=== PATIENT | female | born 1995 | race African-American/Black ===

== ENCOUNTER 2024-11-17 07:30 | Inpatient (IN) ==
[2024-11-17] MEDS: PITOCIN IVP ONE (08:13)
[2024-11-17] MEDS ORDERED: NUBAIN INJ 20 MG AMP IVP PRN (08:13)
[2024-11-17] MEDS ORDERED: REGLAN INJ 10 MG VIAL IVP PRN ×2 (08:13→09:52)
[2024-11-17] MEDS ORDERED: ZOFRAN INJ 4 MG VIAL IVP PRN ×3 (08:13→10:39)
[2024-11-17] MEDS: VERSED ONE (08:37)
[2024-11-17] MEDS: XYLOCAINE 2 % (PLAIN) ONE (08:37)
[2024-11-17] MEDS: MARCAINE SPINAL ONE (08:37)
[2024-11-17] MEDS: PITOCIN ONE (08:37)
[2024-11-17] MEDS: PRECEDEX INJ VIAL ONE (08:39)
[2024-11-17 08:46] LABS: COR CA(FOR HYPOALB) 9.7 mg/dL (8.5-10.1); CREATININE 0.53 mg/dL (0.55-1.02); eGFR NON BLACK RACES > 60 (>60)
[2024-11-17] MEDS: BICITRA 30 ML PO ONE (08:47)
[2024-11-17] MEDS: LR 1,000 ML IV 1,000 ML IV ONE (08:48)
[2024-11-17] MEDS: NS 100 ML IV 100 ML ONE (08:54)
[2024-11-17] MEDS: ANCEF VIAL 1 GRAM IVP ONE (08:54)
[2024-11-17] MEDS: D5 1/2 NS 1,000 ML 1,000 ML IV SCH (09:00)
[2024-11-17] MEDS: LR 1,000 ML IV 1,000 ML IV PRN (09:01)
[2024-11-17] MEDS ORDERED: PRECEDEX INJ VIAL PRN (09:10)
[2024-11-17] MEDS: EPHEDRINE SULFATE INJ ONE (09:15)
[2024-11-17] MEDS: NEO-SYNEPHRINE INJ ONE (09:19)
[2024-11-17] MEDS: EPHEDRINE SULFATE INJ IVP PRN (09:20)
[2024-11-17] MEDS: ZOFRAN INJ 4 MG VIAL IVP PRN (09:27)
[2024-11-17] MEDS: ZOFRAN INJ 4 MG VIAL ONE (09:27)
[2024-11-17] MEDS ORDERED: PITOCIN IVP PRN (09:39)
[2024-11-17] MEDS: VERSED IVP PRN (09:48)
[2024-11-17] MEDS ORDERED: DILAUDID INJ IVP PRN (09:52)
[2024-11-17] MEDS ORDERED: BENADRYL INJ 50 MG VIAL IVP PRN ×2 (09:52→10:39)
[2024-11-17] MEDS: NS 1,000 ML IV 200 ML IV PRN (09:54)
[2024-11-17] MEDS: OFIRMEV IV 1000 MG VIAL 1,000 MG/100 ML VIAL IV ONE (10:31)
[2024-11-17] MEDS: OFIRMEV IV 1000 MG VIAL 1,000 MG/100 ML VIAL IV PRN (10:32)
[2024-11-17] MEDS ORDERED: ADACEL or BOOSTRIX TDaP VACCINE IM ONE (10:39)
[2024-11-17] MEDS ORDERED: NARCAN INJ IVP PRN (10:39)
[2024-11-17] MEDS ORDERED: OFIRMEV IV 1000 MG VIAL 1,000 MG/100 ML VIAL IV PRN (10:39)
--- NOTE | 2024-11-17 10:49 | OR.IMMED ---
IMMEDIATE POST-OP NOTE Immediate Post-Op Note Pre-Op Diagnosis: 39 weeks, previous section, desires sterilization Post-Op Diagnosis: same Procedure: Elective repeat low transverse section with bilateral Terrell tubal ligation Description of Procedure: Live female infant with reassuring apgars Surgeon/Science And Operations Officer: Angelita Mckinnon MD Specimens Removed: Placenta, and portion of left and right fallopian tubes Drains: NONE Complications: None Progress Notes: Patient was transferred to PACU in stable condition Discharge Progress Notes: Mother and stable. Infant to term nursery.
[2024-11-17] MEDS ORDERED: D5 1/2 NS 1,000 ML 1,000 ML with PITOCIN 20 UNITS IV SCH (11:00)
[2024-11-17] MEDS: TORADOL 30 MG VIAL IVP PRN (14:21)
[2024-11-17] MEDS: MOTRIN TAB 800 MG PO PRN (17:01)
[2024-11-18] MEDS: ROXICODONE TAB 5 MG PO PRN (01:04)
[2024-11-18] MEDS: OXYTOCIN 20 UNIT/1,000 ML-NS 20 UNIT/1,000 ML PLAST..BAG IV SCH (02:05)
[2024-11-18] MEDS: MYLICON TAB 80 MG CHEW PO PRN (04:45)
[2024-11-18] MEDS: PERCOCET TAB 5/325 MG PO PRN (07:33)
[2024-11-18] MEDS: PRENATAL PLUS PO SCH (08:15)
--- NOTE | 2024-11-18 08:56 | NOTE.PROBC ---
Progress Note OB-C/S Date Date of Exam: 11/18/24 Subjective Data Subjective: Postoperative day #1 status post elective repeat section with bilateral tubal ligation. Patient states pain is controlled with IV Tylenol, IV Toradol, and ibuprofen. Coto is still in place. Tolerated a regular breakfast. Reports no flatus. Bleeding seems about normal. No shortness of breath or chest pain. Patient notices that her pain with the tubal ligation seems greater than her C- sections without a tubal ligation. Objective Data 11/18/24 05:08 11/17/24 08:23 Objective Data: Obese -Wallisian female in no apparent distress. Lungs clear to auscultation bilaterally. Heart regular rate and rhythm. Abdomen soft, nondistended. Dressing in place. Coto in place. Extremities, trace of edema. Assessment Assessment: Postoperative day #1 status post elective repeat section with bilateral tubal ligation, doing well. Plan (1) delivery delivered: Plan: Ambulate. Advance medicines to p.o. meds for pain. Coto is to be removed. Monitor for signs of returning bowel function.
[2024-11-18] MEDS ORDERED: ADACEL or BOOSTRIX TDaP VACCINE IM ONE (09:06)
[2024-11-18] MEDS: ADACEL or BOOSTRIX TDaP VACCINE IM ONE (09:12)
[2024-11-18] MEDS ORDERED: BETADINE SOLN ONE (14:49)
[2024-11-19 07:41] VITALS: BP 105/55; PULSE 89; RESP 20; TEMP 98.4; O2SAT 98
--- NOTE | 2024-11-19 09:23 | NOTE.PROBC ---
Progress Note OB-C/S Date Date of Exam: 11/19/24 Subjective Data Subjective: Patient states that she feels much better and is passing flatus. Pain is controlled with ibuprofen and Percocet. Bleeding seems about normal. No new complaints. Patient states that if possible she would like to go home. Objective Data 11/19/24 04:03 11/17/24 08:23 Objective Data: Obese -[place] female in no apparent distress. Clear to auscultation bilaterally. Regular rate and rhythm. Abdomen soft nontender. Fundus below umbilicus. Dressing intact. Extremities no edema. Assessment Assessment: Postoperative day #2 status post elective repeat section with bilateral tubal ligation. Postoperative anemia. Plan (1) delivery delivered: Plan: Patient states that she is passing flatus and therefore she can go home to follow-up in the office in 1 week for an incision check. She can be discharged with her dressing in place. Patient was asked to call the pharmacy to verify that her medicines were ready to picker operator and they had been received by the pharmacy. Discharge instructions and precaution per nursing staff.
--- NOTE | 2024-11-19 09:25 | W.DIS.FURT ---
Summary of Discharge Discharge Summary of Date Date of Exam: 11/19/24 Admission Date Date of Admission: 11/17/24 Admission Diagnosis Hospital Course: Patient is a 29-year-old 5 para 5 who was admitted on Saturday for elective repeat section with bilateral tubal ligation for sterilization. Patient has progressed well on the floor postoperatively. She is showing good signs of returning bowel function and is passing flatus. She was discharged to home in self-care with 1 week follow-up for incision check and a prescription for analgesics was sent to her pharmacy at [facility] in [place]. Patient was instructed to call the pharmacy to make sure that they have received the medicine. Vital Signs: Vital Signs (72 hours) 11/17/24 08:13 11/17/24 08:15 11/17/24 08:18 Temperature 98.4 F Pulse Rate 92 H 84 84 Pulse Rate [Left Brachial] Respiratory Rate 18 Blood Pressure 121/66 Blood Pressure [Left Arm] O2 Sat by Pulse Oximetry 98 97 98 Oxygen Delivery Method Room Air 11/17/24 08:23 11/17/24 08:28 11/17/24 08:30 Temperature Pulse Rate 77 84 80 Pulse Rate [Left Brachial] Respiratory Rate Blood Pressure 121/66 Blood Pressure [Left Arm] O2 Sat by Pulse Oximetry 99 98 94 L Oxygen Delivery Method 11/17/24 09:54 11/17/24 10:41 11/17/24 10:46 Temperature 97.0 F L Pulse Rate 77 76 Pulse Rate [Left Brachial] Respiratory Rate 16 16 Blood Pressure 128/68 120/66 Blood Pressure [Left Arm] O2 Sat by Pulse Oximetry 94 L 92 L Oxygen Delivery Method Room Air Room Air Room Air 11/17/24 10:51 11/17/24 10:56 11/17/24 11:01 Temperature Pulse Rate 76 75 76 Pulse Rate [Left Brachial] Respiratory Rate 16 16 16 Blood Pressure 122/63 122/69 122/69 Blood Pressure [Left Arm] O2 Sat by Pulse Oximetry 93 L 95 95 Oxygen Delivery Method Room Air Room Air Room Air 11/17/24 11:06 11/17/24 11:11 11/17/24 11:30 Temperature Pulse Rate 71 72 Pulse Rate [Left Brachial] Respiratory Rate 14 14 Blood Pressure 118/70 121/89 Blood Pressure [Left Arm] O2 Sat by Pulse Oximetry 95 95 Oxygen Delivery Method Room Air Room Air Room Air 11/17/24 11:30 11/17/24 11:30 11/17/24 11:45 Temperature 97.5 F L 97.5 F L 97.4 F L Pulse Rate 72 69 Pulse Rate [Left Brachial] 72 Respiratory Rate 21 21 21 Blood Pressure 112/52 109/54 Blood Pressure [Left Arm] 112/52 O2 Sat by Pulse Oximetry 93 L Oxygen Delivery Method Room Air 11/17/24 12:00 11/17/24 12:15 11/17/24 12:30 Temperature 97.4 F L 97.4 F L 97.4 F L Pulse Rate 85 75 71 Pulse Rate [Left Brachial] Respiratory Rate 21 21 21 Blood Pressure 112/73 124/64 117/59 Blood Pressure [Left Arm] O2 Sat by Pulse Oximetry Oxygen Delivery Method 11/17/24 13:30 11/17/24 14:21 11/17/24 14:30 Temperature 97.4 F L 97.2 F L Pulse Rate 74 73 Pulse Rate [Left Brachial] Respiratory Rate 21 16 24 Blood Pressure 107/56 112/58 Blood Pressure [Left Arm] O2 Sat by Pulse Oximetry Oxygen Delivery Method 11/17/24 15:30 11/17/24 16:30 11/17/24 16:30 Temperature 97.4 F L 98.0 F 98.0 F Pulse Rate 77 70 Pulse Rate [Left Brachial] 70 Respiratory Rate 20 20 20 Blood Pressure 112/61 117/59 Blood Pressure [Left Arm] 117/59 O2 Sat by Pulse Oximetry 99 Oxygen Delivery Method Room Air 11/17/24 17:01 11/17/24 18:01 11/17/24 19:00 Temperature Pulse Rate Pulse Rate [Left Brachial] Respiratory Rate 18 22 Blood Pressure Blood Pressure [Left Arm] O2 Sat by Pulse Oximetry Oxygen Delivery Method Room Air 11/17/24 19:56 11/17/24 20:00 11/17/24 20:26 Temperature 98.5 F Pulse Rate Pulse Rate [Left Brachial] 73 Respiratory Rate 20 18 18 Blood Pressure Blood Pressure [Left Arm] 129/78 O2 Sat by Pulse Oximetry 98 Oxygen Delivery Method Room Air 11/18/24 00:00 11/18/24 01:04 11/18/24 02:04 Temperature 98.7 F Pulse Rate Pulse Rate [Left Brachial] 86 Respiratory Rate 18 20 17 Blood Pressure Blood Pressure [Left Arm] 117/55 O2 Sat by Pulse Oximetry 98 Oxygen Delivery Method Room Air 11/18/24 04:00 11/18/24 04:40 11/18/24 05:10 Temperature 98.7 F Pulse Rate Pulse Rate [Left Brachial] 79 Respiratory Rate 18 19 18 Blood Pressure Blood Pressure [Left Arm] 140/82 O2 Sat by Pulse Oximetry 98 Oxygen Delivery Method Room Air 11/18/24 07:00 11/18/24 07:33 11/18/24 08:00 Temperature 98.2 F Pulse Rate Pulse Rate [Left Brachial] 91 H Respiratory Rate 20 18 Blood Pressure Blood Pressure [Left Arm] 114/58 O2 Sat by Pulse Oximetry 98 Oxygen Delivery Method Room Air Room Air 11/18/24 08:33 11/18/24 11:31 11/18/24 12:00 Temperature 98.4 F Pulse Rate Pulse Rate [Left Brachial] 94 H Respiratory Rate 20 20 18 Blood Pressure Blood Pressure [Left Arm] 121/63 O2 Sat by Pulse Oximetry 99 Oxygen Delivery Method Room Air 11/18/24 12:31 11/18/24 15:02 11/18/24 16:00 Temperature 97.3 F L Pulse Rate Pulse Rate [Left Brachial] 82 Respiratory Rate 20 20 18 Blood Pressure Blood Pressure [Left Arm] 117/70 O2 Sat by Pulse Oximetry 98 Oxygen Delivery Method Room Air 11/18/24 16:02 11/18/24 19:00 11/18/24 20:00 Temperature 97.9 F Pulse Rate Pulse Rate [Left Brachial] 89 Respiratory Rate 20 18 Blood Pressure Blood Pressure [Left Arm] 117/70 O2 Sat by Pulse Oximetry 98 Oxygen Delivery Method Room Air Room Air 11/18/24 20:00 11/18/24 20:08 11/18/24 21:08 Temperature 97.9 F Pulse Rate Pulse Rate [Left Brachial] 89 Respiratory Rate 18 20 20 Blood Pressure Blood Pressure [Left Arm] 117/70 O2 Sat by Pulse Oximetry 98 Oxygen Delivery Method Room Air 11/19/24 00:00 11/19/24 00:10 11/19/24 01:10 Temperature 98.4 F Pulse Rate Pulse Rate [Left Brachial] 82 Respiratory Rate 17 20 18 Blood Pressure Blood Pressure [Left Arm] 118/70 O2 Sat by Pulse Oximetry 98 Oxygen Delivery Method Room Air 11/19/24 04:00 11/19/24 07:00 11/19/24 07:40 Temperature 97.9 F 98.4 F Pulse Rate Pulse Rate [Left Brachial] 75 89 Respiratory Rate 16 20 Blood Pressure Blood Pressure [Left Arm] 127/71 105/55 O2 Sat by Pulse Oximetry 99 98 Oxygen Delivery Method Room Air Room Air Room Air 11/19/24 07:49 Temperature Pulse Rate Pulse Rate [Left Brachial] Respiratory Rate 20 Blood Pressure Blood Pressure [Left Arm] O2 Sat by Pulse Oximetry Oxygen Delivery Method Labs: Laboratory Last Values Hgb 9.5 g/dL (12.0-16.0) L 11/19/24 04:03 Hct 28.2 % (36.0-47.0) L 11/19/24 04:03 Sodium 136 mmol/L (136-145) 11/17/24 08:23 Corrected Sodium TNP 11/17/24 08:23 Potassium 3.8 mmol/L (3.5-5.1) 11/17/24 08:23 Chloride 104 mmol/L (98-107) 11/17/24 08:23 Carbon Dioxide 26.2 mmol/L (21-32) 11/17/24 08:23 BUN 4 mg/dL (7-18) L 11/17/24 08:23 Creatinine 0.53 mg/dL (0.55-1.02) L 11/17/24 08:23 Est GFR (MDRD) Af Amer > 60 (>60) 11/17/24 08:23 Est GFR (MDRD) Non-Af > 60 (>60) 11/17/24 08:23 Glucose 84 mg/dL (65-99) 11/17/24 08:23 Calcium 8.7 mg/dL (8.5-10.1) 11/17/24 08:23 Corrected Calcium 9.7 mg/dL (8.5-10.1) 11/17/24 08:23 Total Bilirubin 0.40 mg/dL (0.2-1.0) 11/17/24 08:23 AST 18 Units/L (15-37) 11/17/24 08:23 ALT 18 Units/L (12-78) 11/17/24 08:23 Alkaline Phosphatase 192 Units/L (46-116) H 11/17/24 08:23 Total Protein 7.6 g/dL (6.4-8.2) 11/17/24 08:23 Albumin 2.7 g/dL (3.4-5.0) L 11/17/24 08:23 Globulin 4.9 g/dL (2.5-4.5) H 11/17/24 08:23 Albumin/Globulin Ratio 0.6 Ratio (1.1-2.1) L 11/17/24 08:23 RPR Nonreactive (NONREACTIVE) 11/17/24 08:23 HIV 1&2 Antibody Non reactive (NONREACTIVE) 11/17/24 08:23 HIV P24 Antigen Non reactive (NONREACTIVE) 11/17/24 08:23 Reason For Visit: SECTION Discharge Date Discharge Date: 11/19/24 Discharge Diagnosis All Active Problems (Updated 11/18/24 @ 08:55 by Angelita Mckinnon MD) delivery delivered (Acute) Obesity complicating in third trimester (Acute) Anemia (Acute) Previous delivery affecting (Acute) Adult BMI 40.0-44.9 kg/sq m (Acute) Abdominal pain during (Acute) Threatened miscarriage (Acute) Plan of Treatment: Continue with present treatment and follow up plan. Pt is to keep follow up appointment as instructed and take medications as ordered. Discharge Medications Discharge Medications: sertraline (From Zoloft) Allergy (Verified 11/17/24 10:12) New Prescriptions ibuprofen 800 mg tablet 800 mg PO Q8H PRN 30 days #30 tabs 11/19/24 [Rx] oxycodone-acetaminophen 5 mg-325 mg tablet 1 tab PO Q4H PRN 7 days #28 tabs 11/19/24 [Rx] Discharge Plan Discharge Plan Hospital Course: Patient is a 29-year-old 5 para 5 who was admitted on Saturday for elective repeat section with bilateral tubal ligation for sterilization. Patient has progressed well on the floor postoperatively. She is showing good signs of returning bowel function and is p assing flatus. She was discharged to home in self-care with 1 week follow-up for incision check and a prescription for analgesics was sent to her pharmacy at [facility] in [place]. Patient was instructed to call the pharmacy to make sure that they have received the medicine. Patient Disposition: HOME, SELF-CARE Condition: Stable Health Concerns: Post Hospitalization: new medications and changes needed to prevent readmission or further decline. Pt educated and given instructions on all concerns. Care Plan Goals: Problem: Pain/Alteration in Comfort Goal: Improve/ Resolve Pain; Achieve Pain Tolerance Instructions: Take pain medications as prescribed. Contact your primary care provider if your pain is unrelieved or worsens. Follow up with primary care provider as directed. Plan of Treatment: Continue with present treatment and follow up plan. Pt is to keep follow up appointment as instructed and take medications as ordered. Prescriptions: New ibuprofen 800 mg Tablet 800 mg PO Q8H PRN30 Days Qty: 30 1RF oxycodone-acetaminophen 5-325 mg Tablet 1 tab PO Q4H MDD 4 PRN7 Days Qty: 28 0RF Continued Classic 28 mg iron- 800 mcg tablet 1 tab PO .q day MDD 1 90 Days Qty: 90 3RF Discontinued ferrous sulfate [Feosol] 325 mg (65 mg iron) tablet 325 mg PO QDAY Qty: 90 3RF promethazine 12.5 mg tablet 12.5 mg PO Q6H PRN (Reason: nausea and vomiting) Qty: 30 0RF Follow ups/Referrals Follow ups/Referrals: Angelita Mckinnon MD [STAFF PHYSICIAN, [facility]/Gynecology] - 12/02/24 1:00 pm Instructions Instructions: Delivery, Care After Stand Alone Forms: Excuse From Work or School, Find Help Web Site, Post Hospital Follow Up Care Print Language: AFGHAN
== END 2024-11-19 13:00 | disposition home or self-care (01) | DRG 785 ==
LOC: LD 07:59 → MED/SURG 11:08
PROVIDERS: ADMIT Obstetrics & Gynecology; ATTEND Obstetrics & Gynecology
DX: Z30.2 Encounter for sterilization; Z3A.39 39 weeks gestation of pregnancy; Z37.0 Single live birth; Z01.812 Encounter for preprocedural laboratory examination; O34.211 Maternal care for low transverse scar from previous cesarean delivery; N85.8 Other specified noninflammatory disorders of uterus